=== PATIENT | male | born 1965 | race Caucasian/White ===

== ENCOUNTER 2019-03-19 22:52 | Emergency (ER) | payer BC, OTHER ==
[~2019-03-19] VITALS: Ht 177.8 cm; Wt 78.9 kg
[2019-03-19] MEDS ORDERED: AUGMENTIN 875-1 EACH PO (23:53)
[2019-03-20 00:21] VITALS: BP 109/79
== END 2019-03-20 00:22 | disposition home or self-care (01) ==
LOC: ER 22:52
DX: S61.031A Puncture wound without foreign body of right thumb without damage to nail, initial encounter (principal); W55.01XA Bitten by cat, initial encounter; Y92.89 Other specified places as the place of occurrence of the external cause; Y93.89 Activity, other specified